=== PATIENT | male | born 1980 | race Caucasian/White ===

== ENCOUNTER 2023-09-11 17:02 | Emergency (ER) | payer BC ==
[2023-09-11] MEDS ORDERED: MORPHINE 4 MG/ML SYR ONE (17:53)
[2023-09-11] MEDS ORDERED: ONDANSETRON 4 MG/2 ML VIAL ONE (17:53)
[2023-09-11] MEDS ORDERED: FAMOTIDINE 20 MG/2 ML VIAL IV ONE (17:53)
[2023-09-11] MEDS ORDERED: NA CHLORIDE 0.9% 1,000 ML ONE ×2 (17:54→18:48)
[2023-09-11 18:13] LABS: Absolute Lymphocytes (CBC) 0.7 K/uL (0.7-4.9); Hematocrit 45.2 % (39.6-49.0); Lymphocytes % 8.4 % (15.3-44.8); MCV 89.6 fL (80-100); MPV 7.8 fL (7.6-11.3); Platelets 236 thou/uL (152-406); RBC Red Blood Cell Count 5.04 M/uL (4.33-5.43)
[2023-09-11 18:32] LABS: Albumin 4.1 g/dL (3.4-5.0); Bilirubin Total 0.8 mg/dL (0.2-1.0)
[2023-09-11 19:20] LABS: White Blood Cell Scan OK (OK)
[2023-09-11 19:21] LABS: Blood Morphology Comment NOT SEEN (NOT SEEN); Platelet Estimate ADEQ
--- NOTE | 2023-09-11 19:43 | RAD REPORT ---
EXAM DESCRIPTION: CT - Abdomen Pelvis W Contrast - 09/11/2023 7:23 pm CLINICAL HISTORY: Abdominal pain COMPARISON: none. TECHNIQUE: Computed axial tomography of the abdomen pelvis was obtained. 100 cc Isovue-300 was admin istered intravenously. Oral contrast was not requested which limits evaluation of bowel and appendix All CT scans are performed using dose optimization technique as appropriate and may include automated exposure control or mA/KV adjustment according to patient size. FINDINGS: Postsurgical changes involve the stomach. Small hiatal hernia. L liver, pancreas, adrenals and kidneys are unremarkable Spleen has a mottled appearance. Normal appendix. No evidence of diverticulitis Mild posterior subluxation of L5 on S1 IMPRESSION: Spleen has a mottled appearance. Most likely this is secondary to multiple, diffuse lesi ons throughout the spleen. Less likely this represents an unusual appearance of differential perfusio n to the spleen which is a normal variant. It is recommended that the patient have splenic ultrasound for further evaluation.
--- NOTE | 2023-09-11 19:47 | RAD REPORT ---
EXAM DESCRIPTION: US - Abdomen Exam Limited - 09/11/2023 7:22 pm CLINICAL HISTORY: Abdominal pain. COMPARISON: None. FINDINGS: Several gallstones. Small amount of sludge. Gallbladder wall is not thickened The biliary tree is normal caliber. IMPRESSION: Cholelithiasis without evidence of cholecystitis
--- NOTE | 2023-09-11 20:30 | ER ---
Nurse's Notes [facility] Adriane Name: Dino Leigh Age: 43 yrs Sex: Male : 1980 Arrival Date: 09/11/2023 Time: 17:02 Bed 16 Private MD: Diagnosis: Abdominal pain, Generalized;Abnormal findings on diagnostic imaging of other abdominal regions, including retroperitoneum-SPLEEN HAS MOTTLED APPEARANCE, MULTIPLE DIFFUSE LESIONS;Other cholelithiasis without obstruction Presentation: 09/11 17:12 Chief complaint: Patient states: Severe epigastric pain, onset about 1.5 hours ago. Has bp gastric sleeve in Jun 2022, concerned it may be his gallbladder, no nausea/vomiting. Tachypneic. Shaking, hands/legs numbness. Coronavirus screen: Vaccine status: Patient reports receiving the 2nd dose of the covid vaccine. Ebola Screen: Patient denies travel to an Ebola-affected area in the 21 days before illness onset. Initial Sepsis Screen: Does the patient meet any 2 criteria? HR > 90 bpm. No. Patient's initial sepsis screen is negative. Does the patient have a suspected source of infection? No. Patient's initial sepsis screen is negative. Risk Assessment: Do you want to hurt yourself or someone else? Patient reports no desire to harm self or others. Onset of symptoms was September 11, 2023. 17:12 Method Of Arrival: Wheelchair bp 17:12 Acuity: SALTY 2 bp Historical: - Allergies: 17:16 No Known Allergies; bp - PMHx: 17:16 None; bp - PSHx: 17:16 Gastric sleeve (July 08, 2022); bp - Immunization history:: Client reports receiving the 2nd dose of the Covid vaccine. - Social history:: Smoking status: Patient denies any tobacco usage or history of. Screenin:26 [facility] ED Fall Risk Assessment (Adult) History of falling in the last 3 months, db including since admission No falls in past 3 months (0 pts). [facility] ED Fall Risk Assessment (Adult) Score/Fall Risk Level 0 - 2 = Low Risk Oriented to surroundings, Maintained a safe environment. Abuse screen: Denies threats or abuse. Denies injuries from another. Nutritional screening: No deficits noted. Tuberculosis screening: No symptoms or risk factors identified. Assessment: 17:22 GI: Pt is actively vomiting. bp 17:55 Respiratory: Breath sounds are clear bilaterally. GI: Abdomen is flat, non-distended, db Pt is actively vomiting Reports nausea, vomiting. 18:26 Reassessment: Patient appears in no apparent distress at this time. Patient and/or db family updated on plan of care and expected duration. Pain level reassessed. Patient is alert, oriented x 3, equal unlabored respirations, skin warm/dry/pink. MIDDLE ABDOMINAL PAIN. General: Appears in no apparent distress. comfortable, Behavior is calm, cooperative. Pain: Complains of pain in abdomen. Cardiovascular: Rhythm is regular. Respiratory: Airway is patent Respiratory effort is even, unlabored, Respiratory pattern is regular, symmetrical. 18:57 Reassessment: Patient appears in no apparent distress at this time. Patient and/or db family updated on plan of care and expected duration. Pain level reassessed. Patient is alert, oriented x 3, equal unlabored respirations, skin warm/dry/pink. Patient states feeling better. Patient states symptoms have improved. 21:32 Reassessment: Patient appears in no apparent distress at this time. No changes from km8 previously documented assessment. Patient and/or family updated on plan of care and expected duration. Pain level reassessed. Patient is alert, oriented x 3, equal unlabored respirations, skin warm/dry/pink. Vital Signs: 17:12 BP 111 / 97; Pulse 91; Resp 28; Pulse Ox 100% on R/A; Weight 73.94 kg; Height 6 ft. 0 bp in. ; Pain 6/10; 17:23 Temp 96.8(A); bp 18:13 BP 108 / 75; Pulse 82; Resp 16; Pulse Ox 98% on R/A; db 21:31 BP 102 / 64; Pulse 70; Resp 16; Pulse Ox 100% on R/A; km8 17:12 Body Mass Index 22.11 (73.94 kg, 182.88 cm) bp 17:12 Pain Scale: Adult bp ED Course: 17:05 Patient arrived in ED. mg5 17:15 Triage completed. bp 17:16 Arm band placed on right wrist. bp 17:20 Michael Joshi MD is Attending Physician. ec2 17:54 Inserted saline lock: 20 gauge in right antecubital area, using aseptic technique. bp Blood collected. 18:26 Makeda Perez RN is Primary Nurse. db 18:39 Attending Physician role handed off by Michael Joshi MD ec2 18:39 De Candelaria MD is Attending Physician. ec2 18:57 Patient has correct armband on for positive identification. Bed in low position. Call db light in reach. Side rails up X 1. Client placed on continuous cardiac and pulse oximetry monitoring. NIBP monitoring applied. 19:20 CT Abd/Pelvis - IV Contrast Only In Process Unspecified. EDMS 19:24 US Abdomen Limited In Process Unspecified. EDMS 19:27 Primary Nurse role handed off by Makeda Perez, OMAR la4 19:27 Queta Perez, RN is Primary Nurse. la4 20:19 US Abdomen Limited In Process Unspecified. EDMS 20:29 Shanel Diaz MD is Referral Physician. renata 20:32 Denilson Freitas MD is Referral Physician. renata 21:32 No provider procedures requiring assistance completed. IV discontinued, intact, km8 bleeding controlled, No redness/swelling at site. Pressure dressing applied. 21:33 Provided Education on: d/c teaching. km8 Administered Medications: 18:00 Drug: NS 0.9% IV 1000 ml IV at 1 bolus Per protocol; 1000 mL bolus Route: IV; Rate: 1 db bolus; Site: right antecubital; 21:34 Follow up: IV Status: Completed infusion km8 18:05 Drug: Famotidine IVP 20 mg IVP once; dilute with 10 mL 0.9% NaCl; give over 2 minutes db Route: IVP; Site: right antecubital; 21:33 Follow up: Response: No adverse reaction 8 18:10 Drug: Ondansetron IVP 4 mg IVP once; over 2 minutes Route: IVP; Site: right antecubital;db 21:34 Follow up: Response: No adverse reaction 8 18:10 Drug: morphine IVP or IV 4 mg IVP once over 4 mins Route: IVP; Infused Over: 4 mins; db Site: right antecubital; 21:34 Follow up: Response: No adverse reaction [facility] 18:50 Drug: NS 0.9% IV 1000 ml IV at 1 bolus Per protocol; 1000 mL bolus Route: IV; Rate: 1 db bolus; Site: right antecubital; 21:33 Follow up: IV Status: Completed infusion 8 Medication: 19:18 VIS not applicable for this client. marc Outcome: 20:30 Discharge ordered by . renata 21:33 Discharged to home ambulatory, with significant other, km8 21:33 Condition: good 21:33 Discharge instructions given to patient, significant other, Instructed on discharge instructions, follow up and referral plans. medication usage, Demonstrated understanding of instructions, follow-up care, medications, Prescriptions given X 3, 21:34 Patient left the ED. km8 Signatures: Dispatcher [employer] EDWI De Candelaria MD MD cha Peltier, Brian, RN RN bp Makeda Perez, RN RN Mindy Mckinnon mg5 Michael Joshi MD MD ec2 Brielle Montgomery RN RN km8 Queta Perez RN RN la4
--- NOTE | 2023-09-11 20:30 | EDPHYS ---
Physician Documentation [facility] Adriane Name: Dino Leigh Age: 43 yrs Sex: Male : 1980 Arrival Date: 09/11/2023 Time: 17:02 Bed 16 Private MD: ED Physician De Candelaria HPI: 09/11 17:28 This 43 yrs old Male presents to ER via Wheelchair with complaints of ec2 Breathing Difficulty, Abdominal Pain, Numbness. 17:28 Patient arrives today due to concern for epigastric abdominal pain. States that the ec2 pain started approximately 1.5 hours ago. States that the pain is rating to the back. Patient reports some associated nausea and vomiting. Denies any issues with his bowels. Reports a history of a gastric sleeve otherwise no complications from this. Denies any urinary complaints. Reports no significant medical problems and no daily medications.. Historical: - Allergies: 17:16 No Known Allergies; bp - PMHx: 17:16 None; bp - PSHx: 17:16 Gastric sleeve (July 08, 2022); bp - Immunization history:: Client reports receiving the 2nd dose of the Covid vaccine. - Social history:: Smoking status: Patient denies any tobacco usage or history of. ROS: 17:28 Constitutional: as per hpi ec2 Exam: 17:28 Constitutional: GEN: NAD Head: atraumatic Eyes: EOMI Ears: External ears are ec2 normal. CV: regular rate LUNGS: no respiratory distress ABD: non-distended, tender in the epigastrium, not guarding, not rigid, negative flanks bilaterally. SKIN: no evidence of rashes MSK: no evidence of trauma NEURO: moves all extremities equally 19:08 ECG was reviewed by the Attending Physician. renata Vital Signs: 17:12 BP 111 / 97; Pulse 91; Resp 28; Pulse Ox 100% on R/A; Weight 73.94 kg; Height 6 ft. 0 bp in. ; Pain 6/10; 17:23 Temp 96.8(A); bp 18:13 BP 108 / 75; Pulse 82; Resp 16; Pulse Ox 98% on R/A; db 21:31 BP 102 / 64; Pulse 70; Resp 16; Pulse Ox 100% on R/A; km8 17:12 Body Mass Index 22.11 (73.94 kg, 182.88 cm) bp 17:12 Pain Scale: Adult bp MDM: 17:21 Patient medically screened. ec2 17:28 Data reviewed: vital signs. ED course: Patient arrives today for evaluation of upper ec2 abdominal pain. Examination remarkable for well-appearing nontoxic dividual is otherwise in some discomfort with abdominal palpation. Will obtain lab work, CT imaging, treat the patient's pain with morphine, crystalloid as well as antiemetic. Currently considering process such as diverticulitis, pancreatitis, cholecystitis.. 18:23 ED course: CBC is reassuring, troponin within normal ranges. . ec2 18:38 ED course: Metabolic profile is reassuring. Lipase is elevated at 277. Patient signed ec2 out pending CT imaging and reassessment. . 18:39 Transition of care: After a detail discussion of the patient's case, care is ec2 transferred to De Candelaria MD. 19:55 Differential diagnosis: Anemia. Antibiotic administration: Not indicated. Immunization renata status:. Consideration of Admission/Observation Escalation of care including admission/observation considered. I considered the following discharge prescriptions or medication management in the emergency department Medications were administered in the Emergency Department. See MAR. Test considered but Not performed: MRI: no mri abd/pelvis. Care significantly affected by the following chronic conditions: pancreatitis. 09/11 17:28 Order name: CBC with Diff; Complete Time: 19:23 ec2 09/11 17:28 Order name: CMP; Complete Time: 18:38 ec2 09/11 17:28 Order name: Lipase; Complete Time: 18:38 ec2 09/11 17:30 Order name: Troponin HS; Complete Time: 18:23 2 09/11 18:43 Order name: Lipid Profile; Complete Time: 19:23 [facility] 09/11 19:21 Order name: CBC Smear Scan; Complete Time: 19:23 EDMS 09/11 17:28 Order name: CT Abd/Pelvis - IV Contrast Only; Complete Time: 19:49 ec2 09/11 18:43 Order name: US Abdomen Limited; Complete Time: 19:49 [facility] 09/11 19:51 Order name: US Abdomen Limited [facility] 09/11 17:30 Order name: EKG; Complete Time: 17:30 ec2 09/11 17:28 Order name: IV Saline Lock; Complete Time: 17:55 ec2 09/11 17:28 Order name: Labs collected and sent; Complete Time: 17:55 ec2 09/11 17:30 Order name: EKG - Nurse/Tech; Complete Time: 18:57 ec2 EC:08 Rate is 67 beats/min. Rhythm is regular. QRS [place] is Normal. DC interval is normal. QRS renata interval is normal. QT interval is normal. No Q waves. T waves are Normal. No ST changes noted. Clinical impression: Normal ECG and No evidence of ischemia. Interpreted by me. Reviewed by me. Administered Medications: 18:00 Drug: NS 0.9% IV 1000 ml IV at 1 bolus Per protocol; 1000 mL bolus Route: IV; Rate: 1 db bolus; Site: right antecubital; 21:34 Follow up: IV Status: Completed infusion [facility] 18:05 Drug: Famotidine IVP 20 mg IVP once; dilute with 10 mL 0.9% NaCl; give over 2 minutes db Route: IVP; Site: right antecubital; 21:33 Follow up: Response: No adverse reaction [facility] 18:10 Drug: Ondansetron IVP 4 mg IVP once; over 2 minutes Route: IVP; Site: right antecubital;db 21:34 Follow up: Response: No adverse reaction [facility] 18:10 Drug: morphine IVP or IV 4 mg IVP once over 4 mins Route: IVP; Infused Over: 4 mins; db Site: right antecubital; 21:34 Follow up: Response: No adverse reaction [facility] 18:50 Drug: NS 0.9% IV 1000 ml IV at 1 bolus Per protocol; 1000 mL bolus Route: IV; Rate: 1 db bolus; Site: right antecubital; 21:33 Follow up: IV Status: Completed infusion km8 Disposition Summary: 09/11/23 20:30 Discharge Ordered Notes: Location: Home renata Problem: new renata Symptoms: have improved renata Condition: Stable renata Diagnosis - Abdominal pain, Generalized renata - Abnormal findings on diagnostic imaging of other abdominal regions, including renata retroperitoneum - SPLEEN HAS MOTTLED APPEARANCE, MULTIPLE DIFFUSE LESIONS - Other cholelithiasis without obstruction renata Followup: renata - With: Private Physician - When: 2 - 3 days - Reason: Recheck today's complaints, Continuance of care, Re-evaluation by your physician Followup: renata - With: hSanel Diaz MD - When: 2 - 3 days - Reason: Recheck today's complaints, Re-evaluation by your physician Followup: [facility] - With: Denilson Freitas MD - When: 2 - 3 days - Reason: Recheck today's complaints, Continuance of care, Re-evaluation by your physician Discharge Instructions: - Discharge Summary Sheet renata - Abdominal Pain, Adult renata - Biliary Colic, Adult renata - Cholelithiasis renata - Cholelithiasis, [id number] [facility] - Abdominal Pain, Adult, [id number] [facility] - Liver and Spleen Scan [facility] - Enlarged Spleen [facility] Forms: - Medication Reconciliation Form [facility] - Thank You Letter [facility] - Antibiotic Education [facility] - Prescription Opioid Use [facility] - Patient Portal Instructions [facility] - Leadership Thank You Letter [facility] Prescriptions: - ondansetron 4 mg Oral Tablet,disintegrating - take 1 tablet ORAL route every 6-8 hours for 48 hours; 20 tablet; Refills: 0, [facility] Product Selection Permitted - Pepcid 20 mg Oral Tablet - take 1 tablet ORAL route every 12 hours for 10 days; 20 tablet; Refills: 0, [facility] Product Selection Permitted - dicyclomine 10 mg/5 mL Oral solution - take 10 milliliters ORAL route 4 times per day; 200 milliliter; Refills: 0, [facility] Product Selection Permitted Signatures: Dispatcher [employer] De Carolina MD MD cha Peltier, Brian, RN RN Makeda Braga RN RN Michael Kennedy MD MD pending sale to [facility] Brielle Montgomery RN km8
--- NOTE | 2023-09-11 20:38 | RAD REPORT ---
EXAM DESCRIPTION: US - Abdomen Exam Limited - 09/11/2023 8:18 pm CLINICAL HISTORY: Abdominal pain. COMPARISON: CT abdomen September 11, 2023 FINDINGS: The spleen measures 13 centimeters. It has a mildly mottled appearance with vague small hypoechoic areas present. IMPRESSION: Mild splenomegaly Spleen has a mottled appearance with vague small hypoechoic areas. This could be inflammatory, infectious,Littoral cell angioma, lymphoma or metastases.
[2023-09-11 21:52] VITALS: TEMP 96.8
[2023-09-11 22:02] VITALS: BP 102/64; O2SAT 100
--- NOTE | 2023-09-12 15:20 | EKG ---
Test Date: 2023-09-11 Test Time: 18:53:02 Steam Table Worker: RICCARDO MEASUREMENT RESULTS: Intervals: Rate: 67 MT: 118 QRSD: 86 QT: 404 QTc: 426 [place]: P: 16 MT: 118 QRS: 86 T: 92 INTERPRETIVE STATEMENTS: Normal sinus rhythm Normal ECG No previous ECG available for comparison Electronically Signed On 09-12-23 15:19:29 SENIOR HEALTH PHYSICS TECHNICIAN by Jony Darnell
== END 2023-09-11 21:34 | disposition home or self-care (01) ==
LOC: ER 17:02
DX: K80.80 Other cholelithiasis without obstruction (principal); R93.5 Abnormal findings on diagnostic imaging of other abdominal regions, including retroperitoneum
CPT/HCPCS: 96361; 93005; 85025; 36415; 80061; 84484; 83690; 80053; 74177; 76705 ×2; 96375; 96374; 99284; Q9967; J2405; J7030 ×2